=== PATIENT | female | born 1950 | race Caucasian/White ===

== ENCOUNTER → 2024-03-07 12:43 | Outpatient (REF) | payer MEDICARE, OTHER, SELFPAY | LOC: HWWDC 12:43 | PROVIDERS: ATTENDING PHYSICIAN Internal Medicine | DX: Z12.31 Encounter for screening mammogram for malignant neoplasm of breast (principal) | CPT/HCPCS: 77063; 77067 ==

== ENCOUNTER 2024-11-25 15:27 | Emergency (ER) | payer MEDICARE, OTHER, SELFPAY ==
[2024-11-25 15:30] VITALS: BP 166/93
[2024-11-25 19:29] VITALS: BMI 31.8
--- NOTE | 2024-11-25 19:30 | ED.GENMED ---
History of Present Illness
General
Chief Complaint: Back Pain
Source: patient
Exam Limitations: none
Time Seen by Provider: 11/25/24 18:49
History of Present Illness
History of Present Illness:
This is a 74 year old female that comes in with c/o neck pain. State that she started yesterday with pain in the neck that sends an electrical shock down into her back. States that she also has pain on the posterior left arm. States that she has
discomfort when she turned her head. State that she took Valium 5mg at home and this did not help. Denies any injury. States that she has herniated disc in the upper back but has never had pain like this before. State that she has a headache and she
has had a cough. Denies any fever, chills, chest pain, SOB, abd pain, nausea, vomiting, diarrhea, dizziness, urinary burning.
Past History
Past History
ED Past Medical History: GERD, HTN, Hypercholesterolemia, Psychiatric (Anxiety, Depression) and Other (Diverticulosis/diverticulitis, irritable bowel syndrome, herniated disc, Anemia, )
ED Past Surgical History: Gynecological (Tubal), Orthopedic (Right knee surgery, Toe surgery, Left wrist with plates and screws) and Other (Lipoma removed)
Social History
Tobacco: Former smoker
Alcohol: Occasional
Personal:
Living: with family
Review of Systems
Review of Systems
All Other Systems: ROS reviewed and negative except as documented in HPI and ROS
Constitutional: Reports no symptoms; Denies fever or chills
EENT: Reports no symptoms
Respiratory: Reports cough; Denies trouble breathing
Cardiac: Reports no symptoms; Denies chest pain
ABD/GI: Reports no symptoms; Denies abdominal pain, nausea, vomiting or diarrhea
: Reports no symptoms; Denies dysuria, frequency or urgency
Musculoskeletal: Reports neck pain (with shooting pain down the back and into the posterior left arm. )
Skin: Reports no symptoms
Neurological: Reports headache; Denies dizzy
Psychiatric: Reports no symptoms
Phy Exam
General Physical Exam
General Presentation: well appearing and no apparent distress
General age: appears stated age
General Skin: warm and dry
General Habitus: elderly
General Mental: alert
General Hydration: appears well hydrated
ENT Exam
ENT Exam: TM's normal, pharynx normal and other (negative cervical neck tenderness with palpation, Patient able to turn her head side to side)
Eye Exam
Eye Exam: EOMI
Cardiovascular Exam
Cardiovascular Exam: regular rate/rhythm
Pulmonary Exam
Pulmonary Exam: lungs clear, no respiratory distress, no rales, chest non tender, no crackles, no rhonchi, no wheezing and other (Occasional dry cough noted)
Musculoskeletal Exam
Musculoskeletal Exam: full ROM
Skin Exam
Skin Exam: normal color, warm/dry, no rash and no petechia
Psychiatric Exam
Psychiatric Exam: normal mood/affect
Course
Orders/Labs/Results
Orders:
Orders
11/25/24 15:28
EKG [Electrocardiogram (*1)] Urgent
Reason for Study: Other
Other Reason for Exam: neck pain that radiates across the upper back
11/25/24 15:29
EKG- Treatment ONCE
11/25/24 19:27
Acetaminophen [Tylenol] 1,000 mg PO NOW STA
Dexamethasone Sod Phosphate [Decadron] 20 mg IV NOW STA
Ketorolac [Toradol] 30 mg IV NOW STA
11/25/24 19:29
CT Cervical Spine W/o Iv Contr Urgent
Comment:
Reason For Exam: Neck pain with electrical shock , pain L arm
11/25/24 19:34
CT Head W/o Iv Contrast Urgent
Comment:
Reason For Exam: headache
11/25/24 19:42
Complete Blood Count/With Diff Urgent
Comprehensive Metabolic Panel Urgent
11/25/24 21:26
Oxycodone [Roxicodone] 5 mg PO NOW STA
Abnormal Lab Results
11/25/24
19:42
WBC 11.3 H 10^3/uL
(4.8-10.8)
RBC 6.03 H 10^6/uL
(4.20-5.40)
Hgb 10.8 L g/dL
(12.0-16.0)
Hct 35.6 L %
(37.0-47.0)
MCV 59.0 L fL
(81.0-99.0)
MCH 17.9 L pg
(27.0-31.0)
MCHC 30.3 L g/dL
(33.0-37.0)
RDW 17.9 H %
(11.5-14.5)
Abs Immat Gran (auto) 0.1 H 10^3/uL
(0-0.05)
Absolute Neuts (auto) 8.6 H 10^3/uL
(1.4-6.5)
Neutrophils % 75.9 H %
(42.2-75.2)
Lymphocytes % 17.0 L %
(20.5-51.1)
BUN 18 H mg/dl
(7-17)
Glucose 114 H mg/dl
(70-99)
Calcium 10.5 H mg/dl
(8.4-10.2)
Total Bilirubin 2.0 H mg/dl
(0.2-1.3)
11/25/24 19:42
11/25/24 19:42
WBC slightly elevated. H/H low. Slight Dehydration. Hyperglycemia. calcium slightly elevated. Total rekha elevation.
Vital Signs
Initial and Last Documented VS:
Initial Vital Signs
Temp Pulse Resp BP Pulse Ox
98.4 F 78 16 166/93 98
11/25/24 15:30 12/28/24 15:30 11/25/24 15:30 11/25/24 15:30 11/25/24 15:30
Last Documented Vital Signs
Temp Pulse Resp BP Pulse Ox
98.4 F 78 16 166/93 98
11/25/24 15:30 11/25/24 15:30 11/25/24 15:30 11/25/24 15:30 11/25/24 19:25
MDM/Problems Addressed
Differential Diagnosis Includes:
Herniated disc.
MDM/Problems Addressed:
This is a 74 year old female that comes in with c/o neck pain that is shooting an electrical shock down her back and into the posterior left upper arm. States that this started yesterday. Patient took Valium and this did not help.
Will check labs, ECG and get CT of head and neck. Will also medicate with Decadron to decreased inflammation and medicate for pain.
Message sent to Neurosurgery Dr. Stewart. Feels that patient can follow up as out patient.
Back into see patient. Reviewed CT findings. Patient will be given a prescription for Steroid for the next 5 days. Patient state that the pain was so bad so will give her a narcotic pain medication that she can also use Tylenol 1000mg every 6 hours.
Patient to follow up with the family doctor and possible a Neuro surgeon. Patient to return with any concerns.
Chronic conditions affecting care:
Herniated disc,
Acute Exacerbation and/or Progression of Chronic Illness:
Herniated disc
*Radiology
Radiology exam reviewed: radiology read reviewed (CT head and cervical spine- No acute intracranial findings. Senescent changes. Vascular calcifications. CT cervical spine-No evidence of acute fracture or dislocation. If there is a persistent
concern, consider MRI for further assessment. Multilevel degenerartive change. Please note that CT is ), all reviewed NAD by ED Provider (CT cont- limited and has low sensitivity for assessment for degree of spinal stenosis. Consider MRi for
further assessment for degree of foraminal/spinal stenoses. Indeterminate 7mm lucent lesion with in C6 vertebral body (304:41), for which MRI is recommended for further characterization. ) and other (CT cont- vascular calcifications. )
*Pulse Oximetry
Patient hypoxic: no
*EKG
Interpreted by ED Provider?: Yes
Heart Rate: 69
Rate: normal
Rhythm: sinus
[place]: left axis deviation
Interval: normal interval
QRS Pattern: low voltage
Ischemia: T-wave inversion (ddddddddaVR, V1, V2, v3, )
*[employer] Interpretation
Rate: As[employer]- N/A
*Critical Care Note
Total Time (30-74mins, 75-104mins- exclusive of procedures): Not Applicable
ED Attending Note
-
Portions of this chart may have been created with voice recognition software.� Occasional wrong word or��sound alike� substitutions may have occurred due to the inherent limitations of voice recognition software.
Discharge Plan
Departure
Patient Disposition: Home (Routine Discharge)
Date of Disposition: 11/25/24
Time of Disposition: 21:28
Patient with high blood pressure during this ER visit?: Yes
Condition: Good
Covid-19: Not Applicable
Discharge Problem:
Cervical pain (neck)
Instructions: Neck pain - ED discharge instructions, BLOOD PRESSURE
Prescriptions:
New
oxycodone 5 mg tablet
5 mg PO Q6H PRN (Reason: Pain) Qty: 10 0RF
prednisone 20 mg tablet
40 mg PO DAILY Qty: 10 0RF
No Action
pantoprazole [Protonix] 40 mg tablet,delayed release (DR/EC)
40 mg PO DAILY Qty: 30 0RF
Rx Instructions:
Please take 30 minutes prior to eating or drinking anything in the morning.
ondansetron 4 mg tablet,disintegrating
4 mg PO Q6H PRN (Reason: nausea and vomiting) Qty: 20 0RF
Referrals:
Gilmer Stewart DO [Active] - Call in 1-3 days for appt
Christine Richey DO [Family Provider] - Follow up in 2-3 days
Activity Restrictions/Additional Instructions:
As discussed, your CT of the head is normal. The CT of the cervical spine shows degenerative changes and there is a lesion noted on C6. This will need further evaluation with MRI. Please follow up with the family doctor in the next 2-3 days for
further evaluation. You have also been given the name of the Neurosurgeon as needed for further evaluation. You may use Tylenol 1000mg every 6 hours for pain. A prescription for an narcotic pain medication has been sent to your pharmacy. This will
make you tired. Please no alcohol or driving when taking. A second prescription for a steroid has also been sent to decreased any inflammation. IF YOU HAVE INCREASED PAIN, NUMBNESS OR YOU HAVE ANY OTHER CONCERNS PLEASE RETURN TO THE EMEGENCY ROOM.
Interventions
Interventions:
*Risk Screen - Suicide Last Done: 11/25/24 15:30
*General Assessment Last Done: 11/25/24 19:23
*Neglect/Abuse Screening Last Done: 11/25/24 19:22
ED- Fall Risk Assessment Last Done: 11/25/24 19:25
*ED COVID-19 Vaccine History Last Done: 11/25/24 19:30
ED-Musculoskeletal Assessment Last Done: 11/25/24 19:25
Discharge Date and Time
Print Language: KYRGYZ
[2024-11-25] MEDS: TYLENOL 1000 MG PO (19:42)
[2024-11-25] MEDS: TORADOL 30 MG IV (20:01)
[2024-11-25] MEDS: DECADRON 20 MG IV (20:03)
[2024-11-25 20:04] LABS: ALT (SGPT) 15 U/L (0-35); AST (SGOT) 24 U/L (14-36); Alkaline Phosphatase 92 U/L (38-126); Blood Urea Nitrogen 18 mg/dl (7-17); Calcium 10.5 mg/dl (8.4-10.2); Carbon Dioxide 23 mmol/L (22-30); Chloride 102 mmol/L (98-107); Estimated Creatinine Clearance 54 ml/min; Glucose 114 mg/dl (70-99); Potassium 3.9 mmol/L (3.5-5.1); Sodium 138 mmol/L (135-145); Total Protein 7.8 g/dl (6.3-8.2); eGFR > 60.00
[2024-11-25 20:11] LABS: Hematocrit 35.6 % (37.0-47.0); Hemoglobin 10.8 g/dL (12.0-16.0); Mean Corp Hgb Conc. 30.3 g/dL (33.0-37.0); Mean Corpuscular Hgb 17.9 pg (27.0-31.0); Red Blood Cell Count 6.03 10^6/uL (4.20-5.40); Red Cell Dist. Width 17.9 % (11.5-14.5); White Blood Cell Count 11.3 10^3/uL (4.8-10.8)
[2024-11-25 20:12] LABS: % Basophils 0.6 % (0-2); % Eosinophils 0.6 % (0-6); % Immature Granulocytes 0.4 % (0-0.5); % Monocytes 5.5 % (1.7-9.3); % Neutrophils 75.9 % (42.2-75.2); Absolute Basophils 0.1 10^3/uL (0-0.2); Absolute Eosinophils 0.1 10^3/uL (0-0.7); Absolute Immature Granulocytes 0.1 10^3/uL (0-0.05); Absolute Lymphocytes 1.9 10^3/uL (1.2-3.4); Absolute Monocytes 0.6 10^3/uL (0.1-0.6); Absolute Neutrophils 8.6 10^3/uL (1.4-6.5); Nucleated Red Blood Cells % 0 %
[2024-11-25] MEDS: ROXICODONE 5 MG PO (21:47)
== END 2024-11-25 22:07 | disposition home or self-care (01) ==
LOC: EMR 15:27
PROVIDERS: Clinical Nurse Specialist Family Health; EMERGENCY PHYSICIAN Emergency Medicine; FAMILY PHYSICIAN Internal Medicine
DX: M54.2 Cervicalgia (principal); M79.602 Pain in left arm; E78.00 Pure hypercholesterolemia, unspecified; I10 Essential (primary) hypertension; K21.9 Gastro-esophageal reflux disease without esophagitis; Z87.891 Personal history of nicotine dependence
CPT/HCPCS: 96374; 96375; 99284; 70450; 72125; 80053; 85025; 93005

== ENCOUNTER → 2025-01-10 10:54 | Outpatient (REF) | payer MEDICARE, OTHER, SELFPAY | LOC: MRI 3T 10:54 | PROVIDERS: ATTENDING PHYSICIAN Internal Medicine | DX: M89.9 Disorder of bone, unspecified (principal) | CPT/HCPCS: 72156; A9575 ==

== ENCOUNTER → 2025-04-27 13:30 | Outpatient (REF) | payer MEDICARE, OTHER, SELFPAY | LOC: HWWDC 13:30 | PROVIDERS: ATTENDING PHYSICIAN Internal Medicine | DX: Z12.31 Encounter for screening mammogram for malignant neoplasm of breast (principal) | CPT/HCPCS: 77063; 77067 ==

== ENCOUNTER → 2025-11-01 09:40 | Outpatient (REF) | payer MEDICARE, OTHER, SELFPAY ==
[2025-11-01 11:14] LABS: Hematocrit 31.7 % (37.0-47.0); Hemoglobin 9.6 g/dL (12.0-16.0); Mean Corp Hgb Conc. 30.3 g/dL (33.0-37.0); Mean Corpuscular Volume 62.4 fL (81.0-99.0); Nucleated Red Blood Cells % 0 %; Platelet Count 248 10^3/uL (130-400); Red Cell Dist. Width 16.1 % (11.5-14.5)
[2025-11-01 11:17] LABS: ALT (SGPT) 15 U/L (0-35); AST (SGOT) 22 U/L (14-36); Albumin 4.5 g/dl (3.5-5.0); Alkaline Phosphatase 73 U/L (38-126); Blood Urea Nitrogen 20 mg/dl (7-17); Calcium 10.1 mg/dl (8.4-10.2); Carbon Dioxide 28 mmol/L (22-30); Chloride 102 mmol/L (98-107); Glucose 109 mg/dl (70-99); HDL Cholesterol 50 mg/dl; LDL Cholesterol, Calculated 72 mg/dl; Potassium 3.8 mmol/L (3.5-5.1); Sodium 137 mmol/L (135-145); Total Protein 7.4 g/dl (6.3-8.2); Very Low Density Lipoprotein 22 mg/dl (0-30); eGFR 59.12
[2025-11-01 11:46] LABS: TSH 2.97 uIU/ml (0.47-4.68)
== END ==
LOC: REG 09:40
PROVIDERS: ATTENDING PHYSICIAN Internal Medicine; FAMILY PHYSICIAN Internal Medicine Endocrinology, Diabetes & Metabolism
DX: E83.52 Hypercalcemia (principal); F41.9 Anxiety disorder, unspecified; K58.2 Mixed irritable bowel syndrome; M85.80 Other specified disorders of bone density and structure, unspecified site; E03.9 Hypothyroidism, unspecified; E78.00 Pure hypercholesterolemia, unspecified; I10 Essential (primary) hypertension; E66.9 Obesity, unspecified; Z87.448 Personal history of other diseases of urinary system; D56.3 Thalassemia minor; M19.90 Unspecified osteoarthritis, unspecified site; Z87.39 Personal history of other diseases of the musculoskeletal system and connective tissue; Z86.79 Personal history of other diseases of the circulatory system; Z23 Encounter for immunization
CPT/HCPCS: 36415; 80053; 80061; 84439; 84443; 85025

== ENCOUNTER 2025-11-12 21:41 | Emergency (ER) | payer MEDICARE, OTHER, SELFPAY ==
[2025-11-12 21:48] VITALS: BP 120/78
[2025-11-12 22:15] LABS: Hematocrit 32.5 % (37.0-47.0); Hemoglobin 10.2 g/dL (12.0-16.0); Mean Corp Hgb Conc. 31.4 g/dL (33.0-37.0); Mean Corpuscular Volume 59.3 fL (81.0-99.0); Nucleated Red Blood Cells % 0 %; Platelet Count 268 10^3/uL (130-400); Red Cell Dist. Width 16.0 % (11.5-14.5)
[2025-11-12 22:17] LABS: INR 1.17; PT 15.1 Sec (11.4-14.6)
[2025-11-12 22:23] LABS: ALT (SGPT) 15 U/L (0-35); AST (SGOT) 22 U/L (14-36); Albumin 4.7 g/dl (3.5-5.0); Alkaline Phosphatase 93 U/L (38-126); Blood Urea Nitrogen 31 mg/dl (7-17); Calcium 10.1 mg/dl (8.4-10.2); Carbon Dioxide 25 mmol/L (22-30); Chloride 105 mmol/L (98-107); Glucose 142 mg/dl (70-99); Potassium 3.5 mmol/L (3.5-5.1); Sodium 138 mmol/L (135-145); Total Protein 7.4 g/dl (6.3-8.2); eGFR 43.15
[2025-11-12 22:34] LABS: Troponin I 0.027 ng/ml
[2025-11-12 22:40] VITALS: BP 128/81
[2025-11-12 23:09] VITALS: BP 102/90
[2025-11-13 00:07] VITALS: BP 96/78
[2025-11-13 00:30] VITALS: BP 118/82
--- NOTE | 2025-11-13 00:46 | ED.GENMED ---
History of Present Illness
General
Chief Complaint: Heart Rate Problem
Source: patient
Exam Limitations: none
Time Seen by Provider: 11/13/25 00:14
History of Present Illness
History of Present Illness:
See MDM
Past History
Past History
ED Past Medical History: Arrthythmia, GERD, HTN, Hypercholesterolemia, Psychiatric (Anxiety, Depression) and Other (Diverticulosis/diverticulitis, irritable bowel syndrome, herniated disc, Anemia, )
ED Past Surgical History: Gynecological (Tubal), Orthopedic (Right knee surgery, Toe surgery, Left wrist with plates and screws) and Other (Lipoma removed)
Social History
Tobacco: Former smoker
Alcohol: Occasional
Personal:
Living: with family
Phy Exam
Physical Exam
Physical Exam:
See MDM
Scores
[id number] Score for Afib Stroke Risk
Age in Years (65=0, 65-74=1, >/=75=2): 65-74
Sex (Female=+1): Female
Congestive Heart Failure History (Yes=+1): No
Hypertension History (Yes=+1): Yes
Stroke/TIA/Thromboembolism History (Yes=+2): No
Vascular Disease History (Yes=+1): No
Diabetes Mellitus (Yes=+1): No
Score: 3
Anticoagulation Recommendations: Recommend anticoagulation (as validated in nonvalvular fib)
Course
Orders/Labs/Results
Orders:
Orders
11/12/25 21:42
Electrocardiogram (*1) Urgent
Reason for Study: Palpitations
EKG- Treatment ONCE
11/12/25 21:54
Cardiac Monitoring- Treatment ONCE
IV Insert/Care/Rem.- Treatment PRN
O2 Therapy [RESP] Urgent
Titrate/Wean O2 to maintain O2 sat greater than (%): 90
Special Instructions: Maintain sats >/=90%
Pulse Ox/spot Check [RESP] Urgent
Quantity: 1
Special Instructions: ON ROOM AIR
11/12/25 21:58
Complete Blood Count/With Diff Urgent
Comprehensive Metabolic Panel Urgent
Prothrombin Time Urgent
Troponin I Urgent
11/12/25 23:12
EKG [Electrocardiogram (*1)] Urgent
Reason for Study: Palpitations
Other Reason for Exam: a fib converted
11/12/25 23:13
EKG- Treatment ONCE
Abnormal Lab Results
11/12/25
21:58
WBC 10.9 H 10^3/uL
(4.8-10.8)
RBC 5.48 H 10^6/uL
(4.20-5.40)
Hgb 10.2 L g/dL
(12.0-16.0)
Hct 32.5 L %
(37.0-47.0)
MCV 59.3 L fL
(81.0-99.0)
MCH 18.6 L pg
(27.0-31.0)
MCHC 31.4 L g/dL
(33.0-37.0)
RDW 16.0 H %
(11.5-14.5)
Abs Immat Gran (auto) 0.1 H 10^3/uL
(0-0.05)
Absolute Neuts (auto) 8.5 H 10^3/uL
(1.4-6.5)
Absolute Monos (auto) 0.7 H 10^3/uL
(0.1-0.6)
Immature Gran % 0.7 H %
(0-0.5)
Neutrophils % 78.1 H %
(42.2-75.2)
Lymphocytes % 14.1 L %
(20.5-51.1)
PT 15.1 H Sec
(11.4-14.6)
BUN 31 H mg/dl
(7-17)
Creatinine 1.3 H mg/dL
(0.6-1.0)
Glucose 142 H mg/dl
(70-99)
Total Bilirubin 1.9 H mg/dl
(0.2-1.3)
11/12/25 21:58
11/12/25 21:58
Vital Signs
Initial and Last Documented VS:
Initial Vital Signs
Temp Pulse Resp BP Pulse Ox
97.8 F 154 22 120/78 98
11/12/25 21:48 11/12/25 21:48 11/12/25 21:48 11/12/25 21:48 11/12/25 21:48
Last Documented Vital Signs
Temp Pulse Resp BP Pulse Ox
97.8 F 76 20 96/78 95
11/12/25 21:48 11/12/25 23:15 11/12/25 23:15 11/13/25 00:07 11/12/25 23:15
MDM/Problems Addressed
Differential Diagnosis Includes:
Note:
CHIEF COMPLAINT(S)
Atrial fibrillation
HISTORY OF PRESENT ILLNESS
The patient is a 75-year-old female with no known past medical history of atrial fibrillation who presented to the emergency department (ED) after being notified by her smartwatch that she might be in atrial fibrillation with an average heart rate
of 120 beats per minute. The patient did not have an ECG setup on her device but was aware of the alert. She reported experiencing palpitations but did not feel unwell otherwise. The palpitations occurred while she was at her doctors office, and
when her heart rate was checked, it was noted to be 86 beats per minute. The patient has never been diagnosed with atrial fibrillation prior to this incident. She was surprised by the diagnosis and did not report significant symptoms at the time of
the visit. The patients understanding of the condition was limited, and she expressed concerns about the risk of stroke associated with atrial fibrillation. At the time of my evaluation, patient auto converted
MEDICATION RECONCILIATION
- The patient mentions taking Metoprolol at a dose of 100 mg. She takes it twice a day but often forgets the second dose, opting to take both doses in the morning.
SOCIAL DETERMINANTS OF HEALTH
The patient reported travel-related experiences and familial stress, mentioning that her father had heart disease, which causes her concern about her own cardiac health.
PHYSICAL EXAM
General: Alert, no acute distress.
Skin: Warm, dry.
Head: Normocephalic, atraumatic
Neck: Appears supple, trachea midline.
Eyes, Ears, Nose, Mouth, and Throat: Moist mucous membranes
Cardiovascular: No signs of cyanosis. Regular rate and rhythm
Respiratory: Respirations are non-labored.
Abdomen: Non-distended
Musculoskeletal: No deformities
Neurological: No focal neurological deficit observed.
Psychiatric: Cooperative, appropriate mood and affect.
PLAN
The plan includes initiating a blood thinner, Apixaban (Eliquis), to reduce the risk of stroke due to atrial fibrillation. A coupon will be provided to assist with the cost of Apixaban. The patient has been advised to follow up with her commanding officer garage
and primary care physician. The patient is advised to inform her commanding officer garage about the recent diagnosis of atrial fibrillation before her upcoming stress test.
DIFFERENTIAL DIAGNOSIS
The Differential Diagnosis includes, in no particular order and is not limited to:
- Atrial fibrillation
- Supraventricular tachycardia
- Hypertensive heart disease
- Ischemic heart disease
- Electrolyte imbalance
- Pulmonary embolism
- Hyperthyroidism
- Congestive heart failure
- Myocarditis
- Valvular heart disease
SUMMARY OF ENCOUNTER
The patient presented to the ED after her smartwatch indicated potential atrial fibrillation. Upon evaluation, she was confirmed to be in atrial fibrillation with a rapid heart rate noted earlier. Education on atrial fibrillation was provided, and
her medications were discussed. The patient was stable during the visit and was advised on the importance of anticoagulation to prevent stroke. She will continue on Metoprolol and start Apixaban. Referral to cardiology for further evaluation and
management was emphasized.
DISPOSITION
Discharge
PATIENT EDUCATION AND COUNSELING
The patient was counseled on atrial fibrillation, the risks associated with it, the importance of anticoagulation therapy, and the need for compliance with her current antihypertensive therapy, Metoprolol. She is to monitor for symptoms of stroke
and seek immediate medical attention if these occur.
FOLLOW-UP INSTRUCTIONS
The patient was instructed to follow up with a commanding officer garage and her primary care physician to discuss the management of her atrial fibrillation and to coordinate her upcoming stress test.
MEDICAL DECISION MAKING
-Complexity of Data Reviewed: Chronic conditions affecting care include an incident of atrial fibrillation.
-Data:
Category 1
No additional labs or tests noted from the conversation.
Category 2
No additional history obtained from other sources.
Category 3
No specific management discussions with other healthcare providers noted from the conversation.
-Risk:
Prescription medication was prescribed and listed as Apixaban (Eliquis).
Consideration of Admission/Observation: Escalation of care including admission/observation was considered given the complexity and risk of the patients presenting complaint. However, ultimately I feel the patient is safe for outpatient management
with close follow-up. Reasoning: Work-up reassuring, does not reveal any acute life/organ-threatening processes, patients symptoms well-controlled upon re-evaluation, re-examination is reassuring, vitals are stable, patient agreeable with discharge,
reliable for follow-up.
SUMMARY OF ENCOUNTER
The patient, a 75-year-old female with palpitations, was evaluated in the emergency department. An EKG conducted revealed atrial fibrillation, which is a new diagnosis for her. She had been alerted by her smartwatch about possible atrial
fibrillation with a heart rate of 120 beats per minute. Her CHADS2 score suggested a need for anticoagulation. She was educated about atrial fibrillation, the associated risks, and the importance of anticoagulation therapy. She was started on
apixaban to mitigate stroke risk and instructed to follow up with her commanding officer garage.
DISPOSITION
Discharge
ASSESSMENT
The patient presented with atrial fibrillation, confirmed via EKG, with palpitations being the principal symptom. Given her CHADS2 score, anticoagulation was initiated with apixaban.
PLAN
Initiate apixaban for stroke prevention. Encourage follow-up with cardiology for further management and evaluation of atrial fibrillation.
PATIENT EDUCATION AND COUNSELING
The patient received counseling about atrial fibrillation, its related risks, and the critical importance of ongoing anticoagulation therapy to prevent stroke. Compliance with metoprolol and monitoring for any stroke symptoms was also emphasized.
FOLLOW-UP INSTRUCTIONS
The patient should follow up with a commanding officer garage to discuss the management of her newly diagnosed atrial fibrillation and coordinate an upcoming stress test.
MEDICATION RECONCILIATION
- Metoprolol: Patient taking 100 mg twice a day, instructed on importance of compliance.
- Apixaban: Started for anticoagulation.
MEDICAL DECISION MAKING
-Complexity of Data Reviewed: Chronic conditions affecting care include atrial fibrillation. Differential diagnoses considered are atrial fibrillation, supraventricular tachycardia, hypertensive heart disease, ischemic heart disease, electrolyte
imbalance, pulmonary embolism, hyperthyroidism, congestive heart failure, myocarditis, and valvular heart disease.
-Risk: Prescription medication was prescribed and listed as apixaban. Consideration of Admission/Observation: Escalation of care including admission/observation was considered given the complexity and risk of the patients presenting complaint.
However, ultimately I feel the patient is safe for outpatient management with close follow-up. Reasoning: Work-up is reassuring, does not reveal any acute life/organ-threatening processes, patients symptoms are well-controlled upon reevaluation,
re-examination is reassuring, vitals are stable, patient is agreeable with discharge, and reliable for follow-up.
DIAGNOSIS
- Atrial Fibrillation (I48.91)
- Palpitations (R00.2)
*Pulse Oximetry
SaO2: 95
Oxygen Mode of Delivery: Room air
Patient hypoxic: no
*EKG
Interpreted by ED Provider?: Yes
EKG Intrepretation Date: 11/13/25
Interpretation: abnormal (A-fib with RVR at 144 bpm, left axis, no ST elevation)
*Critical Care Note
Total Time (30-74mins, 75-104mins- exclusive of procedures): Not Applicable
ED Attending Note
-
Portions of this chart may have been created with voice recognition software.� Occasional wrong word or��sound alike� substitutions may have occurred due to the inherent limitations of voice recognition software.
Discharge Plan
Departure
Patient Disposition: Home (Routine Discharge)
Date of Disposition: 11/13/25
Time of Disposition: 00:49
Patient with high blood pressure during this ER visit?: No
Discharge Problem:
New onset a-fib
Instructions: Atrial Fibrillation (DC)
Prescriptions:
New
Eliquis 5 mg tablet
5 mg PO BID Qty: 60 0RF
No Action
Areds
1 tab PO DAILY
famotidine 40 mg Tablet
40 mg PO DAILY
levothyroxine [Synthroid] 88 mcg Tablet
88 mcg PO DAILY
olmesartan-hydrochlorothiazide [Benicar HCT] 40-25 mg Tablet
1 tab PO DAILY
rosuvastatin 10 mg Tablet
10 mg PO DAILY
cholecalciferol (vitamin D3) [Vitamin D3] 50 mcg (2,000 unit) Capsule
50 mcg PO DAILY
metoprolol succinate 100 mg Capsule,Sprinkle,Er 24hr
100 mg PO DAILY
allopurinol 200 mg Tablet
200 mg PO DAILY
Align Dualbiotic 500 million cell-1.25 gram Tablet,Chewable
1 tab PO DAILY
Referrals:
Jeniffer Meeks MD [Family Provider, Endocrinology]
Activity Restrictions/Additional Instructions:
Please return for any worsening symptoms.
You may return at any time if you have further concerns.
Please follow up with your doctor at the first available appointment, preferably this week.
Please make an appointment see your commanding officer garage.
Thank you for choosing [facility].
Interventions
Interventions:
*General Assessment Last Done: 11/13/25 00:10
*Neglect/Abuse Screening Last Done: 11/13/25 00:10
*ED COVID-19 Vaccine History Last Done: 11/13/25 00:10
*ED Influenza Vaccine History Last Done: 11/13/25 00:10
[facility] Risk Assessment Tool Last Done: 11/13/25 00:02
*Risk Screen - Suicide (C-SSRS) Last Done: 11/12/25 21:48
Discharge Date and Time
Print Language: [place]
[2025-11-13 01:00] VITALS: BP 105/88
== END 2025-11-13 01:10 | disposition home or self-care (01) ==
LOC: EMR 21:41
PROVIDERS: EMERGENCY PHYSICIAN Student in an Organized Health Care Education/Training Program; FAMILY PHYSICIAN Internal Medicine Endocrinology, Diabetes & Metabolism
DX: I48.91 Unspecified atrial fibrillation (principal); K21.9 Gastro-esophageal reflux disease without esophagitis; I10 Essential (primary) hypertension; E78.00 Pure hypercholesterolemia, unspecified; K58.9 Irritable bowel syndrome, unspecified; Z79.01 Long term (current) use of anticoagulants; Z79.899 Other long term (current) drug therapy; Z82.49 Family history of ischemic heart disease and other diseases of the circulatory system; Z87.891 Personal history of nicotine dependence
CPT/HCPCS: 99283; 80053; 84484; 85025; 85610; 93005